=== PATIENT | male | born 1950 | race African-American/Black ===

== ENCOUNTER 2017-02-03 17:18 | Observation (INO) | payer MEDICARE ==
[~2017-02-03] VITALS: Ht 188 cm; Wt 105.9 kg
[~2017-02-03 17:18] MED LIST: ACTOS30 MG PO; CIPRO500 MG PO; CYCLOBENZAPRINE10 MG PO; DIABETA5 MG PO; GLUCOPHAGE1000 MG PO; HYDRALAZINE HCL50 MG PO; HYDROCODONE-APA1 TAB PO; NEURONTIN 300300 MG PO; NORVASC10 MG PO; PLAVIX75 MG PO; XANAX0.25 MG PO
[2017-02-03 18:19] LABS: BASOPHILS 0.3 % (0-2); EOSINOPHILS 3.4 % (0-7); HEMATOCRIT 31.6 % (42.0-54.0); HEMOGLOBIN 10.4 g/dL (13.5-17.5); IMMATURE GRANULOCYTES 0.2 % (0-5); LYMPHOCYTES 40.7 % (15-50); MCH 30.7 pg (26.0-34.0); MCHC 32.9 g/dL (31.0-37.0); MCV 93.2 fL (80.0-100.0); MEAN PLATELET VOLUME 10.4 fL (7.4-10.4); MONOCYTES 5.1 % (2-11); NEUTROPHILS 50.3 % (40-80); RBC 3.39 10x6/uL (4.20-6.10); RDW 12.7 % (11.5-14.5); WBC 6.4 10x3/uL (4.8-10.8)
[2017-02-03 18:20] LABS: PLATELET COUNT 150 10x3/uL (130-400)
[2017-02-03 18:38] LABS: ALBUMIN 3.8 g/dL (3.4-5.0); ALKALINE PHOSPHATASE 109 U/L (46-116); ALT (SGPT) 48 U/L (10-68); BILIRUBIN - TOTAL 0.34 mg/dL (0.2-1.3); CALC OSMOLALITY 281 mosm/kg (275-300); CALCIUM 8.2 mg/dL (8.5-10.1); CARBON DIOXIDE 24.4 mmol/L (21.0-32.0); CHLORIDE - SERUM 103 mmol/L (98-107); CREATININE - SERUM 1.9 mg/dL (0.6-1.3); GLUCOSE 132 mg/dL (74-106); POTASSIUM - SERUM 3.7 mmol/L (3.5-5.1); PROTEIN - SERUM 7.6 g/dL (6.4-8.2); SODIUM 138 mmol/L (136-145); UREA NITROGEN 23 mg/dL (7-18); eGFR NON AFRICAN AMERICAN 38 mL/min (90-120)
[2017-02-03 18:50] LABS: CKMB 1.5 U/L (0.0-3.6); CREATINE KINASE 472 UL (21-232); TROPONIN-I < 0.017 ng/mL (0.000-0.060)
[2017-02-03 19:00] VITALS: BP 134/61
--- NOTE | 2017-02-03 20:15 | NUR ---
RECEIVED FROM ER VIA WC. AMBULATED TO BED WITH UNSTEADY GAIT. ORIENTED TO NAME AND ONLY. KNOWS HIS FAMILY PRESENT IN ROOM. TALKING LOUDLY AND RAPIDLY. HIS IS PRESENT TO GIVE MEDICAL INFORMATION. IV IN L FA INTACT SL. STATED HE HAD BEEN DRINKING WHISKEY, FELL AND PASSED OUT, HIT HIS HEAD. NO ABRASIONS OR SWELLINGS NOTED ON HEAD OR SKIN. DENIES PAIN. REQUESTED SOME FOOD AND WATER. REQUESTED A FAMILY MEMBER TO STAY WITH HIM FOR SAFETY CONCERNS.
--- NOTE | 2017-02-03 21:50 | NUR ---
CHECKED BS AT 309. ADMIN HUMULIN R 8 UNITS.
[2017-02-04] MEDS ORDERED: LEXAPRO10 MG PO (00:02)
[2017-02-04] MEDS ORDERED: OMEPRAZOLE20 M1 PO (00:05)
[2017-02-04] MEDS ORDERED: CATAPRES0.2 MG PO (00:08)
[2017-02-04] MEDS ORDERED: GLUCOTROL 5 MG T5 MG PO (00:09)
[2017-02-04] MEDS ORDERED: NORMODYNE / TR300 MG PO (00:14)
[2017-02-04] MEDS ORDERED: TRADJENTA5 MG PO (00:15)
[2017-02-04] MEDS ORDERED: BAYER CHEWABLE81 MG PO (00:16)
[2017-02-04] MEDS ORDERED: HUMALOG 30100 UNITS/ SC (00:25)
[2017-02-04 01:01] LABS: CREATINE KINASE 444 UL (21-232); TROPONIN-I < 0.017 ng/mL (0.000-0.060)
[2017-02-04 01:02] LABS: CKMB 1.6 U/L (0.0-3.6)
[2017-02-04 01:40] VITALS: BP 134/61; Ht 188 cm; Wt 105.9 kg
--- NOTE | 2017-02-04 01:58 | NUR ---
AWAKE EATING WHITLOCK'S FOOD HIS BROUGHT TO HIM. DENIES ANY NEEDS. MORE ORIENTED TO PLACE AND SITUATION.
[2017-02-04 04:00] VITALS: BP 143/66
[2017-02-04 06:26] LABS: BASOPHILS 0.2 % (0-2); EOSINOPHILS 3.8 % (0-7); HEMATOCRIT 31.8 % (42.0-54.0); HEMOGLOBIN 10.6 g/dL (13.5-17.5); IMMATURE GRANULOCYTES 0.4 % (0-5); LYMPHOCYTES 39.3 % (15-50); MCHC 33.3 g/dL (31.0-37.0); MEAN PLATELET VOLUME 10.3 fL (7.4-10.4); MONOCYTES 8.1 % (2-11); NEUTROPHILS 48.2 % (40-80); PLATELET COUNT 145 10x3/uL (130-400); RBC 3.42 10x6/uL (4.20-6.10); RDW 12.7 % (11.5-14.5)
[2017-02-04 06:53] LABS: CALC OSMOLALITY 287 mosm/kg (275-300); CALCIUM 8.6 mg/dL (8.5-10.1); CARBON DIOXIDE 25.7 mmol/L (21.0-32.0); CHLORIDE - SERUM 107 mmol/L (98-107); CKMB 1.4 U/L (0.0-3.6); CREATINE KINASE 415 UL (21-232); CREATININE - SERUM 1.6 mg/dL (0.6-1.3); GLUCOSE 159 mg/dL (74-106); POTASSIUM - SERUM 4.2 mmol/L (3.5-5.1); SODIUM 142 mmol/L (136-145); UREA NITROGEN 18 mg/dL (7-18); eGFR NON AFRICAN AMERICAN 46 mL/min (90-120)
[2017-02-04 06:54] LABS: TROPONIN-I < 0.017 ng/mL (0.000-0.060)
--- NOTE | 2017-02-04 07:35 | NUR ---
REPORT RECIEVED. PT RESTING QUIETLY, RR EVEN AND UNLABORED. FAMILY AT BEDSIDE. EKG COMPLETED AND PLACE IN CHART. ALERT AND ORIENTED, DENIES OTHER NEEDS AT THIS TIME. INTRODUCED SELF AND NAME PLACED ON WHITE BOARD. WILL CTM.
[2017-02-04 08:00] VITALS: BP 166/75
--- NOTE | 2017-02-04 14:49 | NUR ---
PT DISCHARGED. REMOVED IV WITH CATHETER TIP INTACT, BANDAGE APPLIED. TELEMETRY REMOVED AND RETURNED TO HUMAN RESOURCES EXECUTIVE ASSISTANT. DISCHARGE INSTRUCTIONS PROVIDED TO PT AND FAMILY, BOTH VERBALIZED UNDERSTANDING. PT WILL BE LEAVING FACILITY VIA WHEELCHAIR AND WILL BE TRANSPORTED HOME WITH IN PERSONAL VEHICLE.
== END 2017-02-04 15:00 | disposition home or self-care (01) ==
LOC: OBSVTIME → D.ER 17:18 → D.M2 19:24 → D.ER 19:24 → OBSVTIME 19:24 → D.M2 19:24
PROVIDERS: Family Medicine; ADMIT Family Medicine
DX: T51.0X1A Toxic effect of ethanol, accidental (unintentional), initial encounter (principal); F10.129 Alcohol abuse with intoxication, unspecified; Y90.7 Blood alcohol level of 200-239 mg/100 ml; R41.82 Altered mental status, unspecified; I10 Essential (primary) hypertension; N28.9 Disorder of kidney and ureter, unspecified; E78.5 Hyperlipidemia, unspecified; E11.9 Type 2 diabetes mellitus without complications; F41.8 Other specified anxiety disorders; W19.XXXA Unspecified fall, initial encounter; Z87.891 Personal history of nicotine dependence

== ENCOUNTER 2018-03-15 23:47 | Emergency (ER) | payer MEDICARE ==
[~2018-03-15] VITALS: Ht 188 cm; Wt 104.3 kg
[~2018-03-15 23:47] MED LIST changes: +BAYER CHEWABLE81 MG PO; +CATAPRES0.2 MG PO; +GLUCOTROL 5 MG T5 MG PO; +HUMALOG 30100 UNITS/ SC; +LEXAPRO10 MG PO; +NORMODYNE / TR300 MG PO; +OMEPRAZOLE20 M1 PO; +TRADJENTA5 MG PO
[2018-03-15 23:59] VITALS: Ht 188 cm; Wt 104.3 kg
[2018-03-16 00:47] VITALS: BP 122/73
== END 2018-03-16 00:48 | disposition home or self-care (01) ==
LOC: D.ER 23:47
DX: Z91.19 Patient's noncompliance with other medical treatment and regimen (principal)

== ENCOUNTER 2018-11-30 12:20 | Emergency (ER) | payer OTHER ==
[~2018-11-30] VITALS: Ht 188 cm; Wt 99.1 kg
[2018-11-30 12:41] VITALS: BP 126/60; Ht 188 cm; Wt 99.1 kg
[2018-11-30 13:18] LABS: APPEARANCE CLEAR (CLEAR); BILIRUBIN NEGATIVE (NEGATIVE); COLOR YELLOW (YELLOW); GLUCOSE 500 mg/dL (NEGATIVE); KETONE NEGATIVE (NEGATIVE); NITRITE NEGATIVE (NEGATIVE); PROTEIN NEGATIVE (NEGATIVE); UROBILINOGEN NORMAL (NORMAL)
[2018-11-30] MEDS ORDERED: TORADOL10 MG PO (15:57)
== END 2018-11-30 16:28 | disposition home or self-care (01) ==
LOC: D.ER 12:20
PROVIDERS: Family Medicine
DX: M54.2 Cervicalgia (principal); M20.30 Hallux varus (acquired), unspecified foot; Z98.890 Other specified postprocedural states; V03.90XA Pedestrian on foot injured in collision with car, pick-up truck or van, unspecified whether traffic or nontraffic accident, initial encounter; Y93.89 Activity, other specified; Y92.410 Unspecified street and highway as the place of occurrence of the external cause

== ENCOUNTER 2018-12-19 19:08 | Inpatient (IN) | payer OTHER ==
[2018-12-19] VITALS (9 sets, daily range): BP systolic 149–207; BP diastolic 83–105; BMI 24.5
[~2018-12-19] VITALS: Ht 188 cm; Wt 89.8 kg
[~2018-12-19 19:08] MED LIST changes: +TORADOL10 MG PO
--- NOTE | 2018-12-19 19:15 | NUR ---
TRAUMA BAND [id number]
--- NOTE | 2018-12-19 19:30 | NUR ---
OFFICER ELIANE CONTRERAS NUMBER [id number] AT PT'S BEDSIDE.
--- NOTE | 2018-12-19 20:04 | NUR ---
PT'S NIECE AT PT'S BEDSIDE, UPON REASSESSMENT PT'S NIECE REPORTS THAT SHE WITNESSED PT FALL AND HIT HIS HEAD GALLEY BOY. EDP NOTIFED.
--- NOTE | 2018-12-19 21:44 | NUR ---
PT GIVEN BLANKETS.
[2018-12-19 21:52] LABS: BASOPHILS 0.3 % (0-2); EOSINOPHILS 6.8 % (0-7); HEMATOCRIT 33.2 % (42.0-54.0); HEMOGLOBIN 11.6 g/dL (13.5-17.5); IMMATURE GRANULOCYTES 0.3 % (0-5); LYMPHOCYTES 40.7 % (15-50); MCH 31.4 pg (26.0-34.0); MCHC 34.9 g/dL (31.0-37.0); MCV 89.7 fL (80.0-100.0); MEAN PLATELET VOLUME 9.9 fL (7.4-10.4); MONOCYTES 6.5 % (2-11); NEUTROPHILS 45.4 % (40-80); PLATELET COUNT 138 10x3/uL (130-400); RDW 12.1 % (11.5-14.5); WBC 6.1 10x3/uL (4.8-10.8)
[2018-12-19 22:00] LABS: APTT 29.4 SECONDS (22.8-39.4); INR 1.08 (0.85-1.17); PROTIME 13.5 SECONDS (11.6-15.0)
[2018-12-19 22:04] LABS: ALBUMIN 3.8 g/dL (3.4-5.0); ANION GAP 12.3 mmol/L (8-16); BILIRUBIN - TOTAL 0.39 mg/dL (0.2-1.3); CALCIUM 8.7 mg/dL (8.5-10.1); CARBON DIOXIDE 28.3 mmol/L (21.0-32.0); CREATININE - SERUM 1.5 mg/dL (0.6-1.3); POTASSIUM - SERUM 3.6 mmol/L (3.5-5.1); PROTEIN - SERUM 7.6 g/dL (6.4-8.2)
--- NOTE | 2018-12-19 22:19 | NUR ---
PT'S IV KEPPRA INFUSION FINISHED.
--- NOTE | 2018-12-19 23:15 | NUR ---
Received patient from ER to 2310 and connected to monitor, assessment completed per flowsheet. Patient AO x4, answers appropriately/follows commands. S1/S2 noted NSR on telemetry with HR 68, rythmic and regular. Breathing is even/unlabored on room air with O2 sat 96%, lung sounds clear throughout. Abdomen is round/soft with bowel sounds active x4, non-tender. Patient utilizes urinal jug without assist, 375ml clear yellow urine. All pulses palpable with cap refill < 3 sec, skin warm/dry. Patient food tray assembler equal bilateral, pedal strength equal bilateral. Denies pain or other needs at this time, see flowsheet for details. All VSS and will continue to monitor.
[2018-12-20] VITALS (22 sets, daily range): BP systolic 131–180; BP diastolic 70–99; Ht 188 cm; Wt 89.8 kg
--- NOTE | 2018-12-20 01:00 | NUR ---
Patient resting in bed with eyes closed, no s/s of distress. Patient awakens and answers appropriately/follows instrcutions, claims he "just wants to sleep". BP/HR stable, no further needs and will continue to monitor.
--- NOTE | 2018-12-20 03:00 | NUR ---
Reassessment completed per flowsheet, no changes noted from previous assessment. Patient awakens to voice, follows instructions/answers appropriately. S1/S2 noted NSR on telemetry, rythmic and regular. Breathing is even/unlabored on room air with O2 sat 94%, lung sounds clear throughout. All pulses palpable with cap refill < 3 sec, skin warm/dry. Denies pain or other needs at this time, see flowsheet for details. All VSS and will continue to monitor.
--- NOTE | 2018-12-20 05:00 | NUR ---
Patient sleeping in bed with eyes closed, no s/s of distress at this time. Awakens to voice, follows instructions/answers appropriately. Denies needs at this time, all VSS and will continue to monitor.
--- NOTE | 2018-12-20 08:18 | NUR ---
0700 AWAKE ALERT ANSWERS QUESTIONS REQUESTING DATA ENTRY PROCESSOR DEPT PHONE NUMBER. ROOM NUMBER AND DATA ENTRY PROCESSOR DEPT NUMBER PROVIDED TO PATIENT ASSESMENT COMPLETE.
--- NOTE | 2018-12-20 19:00 | NUR ---
RECIEVED RREPORT FROM KARINA CARNES. PT ALERT AND ORIENTED X4 AT THIS TIME. PT SON AT BEDSIDE. PT VITALS STABLE. NO S/S OF DISTRESS PRESENT. PT DENIES ANY PAIN OR NEEDS AT THIS TIME. BED LOW CALL LIGHT WITHIN REACH. SIDE RAILS UP X2. WILL CONTINUE TO MONITOR.
--- NOTE | 2018-12-20 19:03 | MORECARE ---
CASE MANAGEMENT DISCHARGE SUMMARY PATIENT: WILFRID MARISCAL UNIT: [id number] ADM DATE: 12/19/18 AGE: 68 : 50 SEX: M ROOM/BED: D.2310 AUTHOR: TYRON TORRES PHYSICIAN: REFERRING PHYSICIAN: NAE WEINSTEIN MD DATE OF SERVICE: 12/20/18 Discharge Plan Patient Name: WILFRID MARISCAL [facility] [facility] 1950 Planned Disposition: Home Anticipated Discharge Date: Discharge Date: Expected LOS: Initial Reviewer: [email or web address] Initial Review Date: 12/19/2018 Generated: 12/20/18 8:03 pm Patient Name: WILFRID MARISCAL Page 35151 at 1903 All edits/amendments must be made on the electronic document DICTATION DATE: 12/20/181901 SHIP DESIGN TEACHER: AVINASH 12/20/181901 RPT#: [id number] DC DATE: STATUS: ADM IN [facility] [address] [place] [address] END OF REPORT
--- NOTE | 2018-12-20 19:10 | MORECARE ---
CASE MANAGEMENT DISCHARGE SUMMARY PATIENT: WILFRID MARISCAL UNIT: [id number] ADM DATE: 12/19/18 AGE: 68 : 50 SEX: M ROOM/BED: D.2310 AUTHOR: MELISSA,DOC PHYSICIAN: REFERRING PHYSICIAN: NAE WEINSTEIN MD DATE OF SERVICE: 12/20/18 Discharge Plan Patient Name: WILFRID MARISCAL Facility: [facility]:[place] : 1950 Planned Disposition: Home Anticipated Discharge Date: Discharge Date: Expected LOS: Initial Reviewer: [email or web address] Initial Review Date: 12/19/2018 Generated: 12/20/18 8:10 pm Comments DCP- Discharge Planning Updated by [email or web address]: Magaly Walsh on 12/20/18 6:[address] Patient Name: WILFRID MARISCAL Admission Status: ER Accout number: [id number] Admission Date: 12-19-2018 : 1950 Admission Diagnosis: Attending: NAE WEINSTEIN Current LOS: 1 Anticipated DC Date: Planned Disposition: Home Primary Insurance: [employer] Discharge Planning Comments: CM met with patient at bedside. Patient states he lives at home alone. He plans on returning to his home upon discharge. He states he feels safe at his home. He states he will have family drive him home upon discharge. He denies any discharge needs at this time. CM will continue to follow and assist as needed with discharge planning / needs. Educational Program Director: Magaly Walsh DCPIA - Discharge Planning Initial Assessment Updated by [email or web address]: Magaly Walsh on 12/20/18 7:06 pm * Is the patient Alert and Oriented? Yes * How many steps to enter\exit or inside your home? * PCP unknown * Pharmacy [facility] * Preadmission Environment Home Alone * ADLs Independent * Equipment None * List name and contact numbers for known caregivers / representatives who currently or will assist patient after discharge: DUNCAN GARCIA SON - [phone] KRISTEN MARISCAL JR - SON - [phone] NICHOLAS JOHNS [facility] - [phone] * Verbal permission to speak to the caregivers and representatives has been obtained from the patient. Yes * Community resources currently utilized None * Additional services required to return to the preadmission environment? No * Can the patient safely return to the preadmission environment? Yes * Has this patient been hospitalized within the prior 30 days at any hospital? No Last DP export: 12/20/18 6:03 p Patient Name: WILFRID MARISCAL Page [id number] at 1910 All edits/amendments must be made on the electronic document DICTATION DATE: 12/20/181909 DAY TREATMENT CLINICIAN/ART THERAPIST: AVINASH 12/20/181909 RPT#: [id number] DC DATE: STATUS: ADM IN [facility] [address] [place] [address] END OF REPORT
--- NOTE | 2018-12-20 21:00 | NUR ---
PT RESTING IN BED WITH EYES CLOSED RR EVEN AND UNLABORED. NO S/S OF DISTRESS. VITALS STABLE AT THIS TIME. WILL CONTINUE TO MONITOR. BED LOW CALL LIGHT WITHIN REACH SIDE RAILS X2.
--- NOTE | 2018-12-20 22:37 | NUR ---
0900 AWAKE ALERT NO DISTRESS NOTED C/O H/A 01/09 APAP 650MG GIVEN PO
--- NOTE | 2018-12-20 22:38 | NUR ---
1100 UP TO BSC SOFT BROWN STOOL NOTED
--- NOTE | 2018-12-20 22:39 | NUR ---
1500 FAMILY AT BEDSIDE EMOTIONAL SUPPORT GIVEM
--- NOTE | 2018-12-20 22:39 | NUR ---
13OO VOIDS IN URINAL INDEPENDENTLY
--- NOTE | 2018-12-20 22:39 | NUR ---
1000 DIESEL PLANT OPERATOR AT BEDSIDE TAKING REPORT FROM PATIENT
--- NOTE | 2018-12-20 22:41 | NUR ---
1700 APPETITE SCHEDULED BLOOD SUGARS PERFORMED
--- NOTE | 2018-12-20 23:00 | NUR ---
PT RESTING IN BED WITH EYES CLOSED RR EVEN AND UNLABORED. PT AWAKES TO VOICE. VITALS STABLE. BED LOW CALL LIGHT WITHIN REACH. SIDE RAILS UP X2 WILL CONTINUE TO MONITOR.
[2018-12-21] VITALS (18 sets, daily range): BP systolic 159–203; BP diastolic 72–109
--- NOTE | 2018-12-21 | NUR ---
PT RESTING IN BED WITH EYES CLOSED RR EVEN AND UNLABORED. NO S/S OF DISTRESS AT THIS TIME. BED LOW CALL LIGHT WITHIN REACH. WILL CONTINUE TO MONITOR. VITALS STABLE.
--- NOTE | 2018-12-21 02:00 | NUR ---
PT RESTING IN BED WITH EYES CLOSED RR EVEN AND UNLABORED. VITALS STABLE AT THIS TIME. BED LOW CALL LIGHT WITHIN REACH. WILL CONTINUE TO MONITOR.
--- NOTE | 2018-12-21 04:00 | NUR ---
PT RESTING IN BED WITH EYES CLOSED RR EVEN AND UNLABORED. VITALS STABLE. BED LOW CALL LIGHT WITHIN REACH. WILL CONTINUE TO MONITOR.
[2018-12-21 05:10] LABS: BASOPHILS 0.3 % (0-2); EOSINOPHILS 6.9 % (0-7); HEMATOCRIT 30.7 % (42.0-54.0); HEMOGLOBIN 10.8 g/dL (13.5-17.5); IMMATURE GRANULOCYTES 0.3 % (0-5); LYMPHOCYTES 34.1 % (15-50); MCH 31.8 pg (26.0-34.0); MCHC 35.2 g/dL (31.0-37.0); MCV 90.3 fL (80.0-100.0); MEAN PLATELET VOLUME 10.1 fL (7.4-10.4); MONOCYTES 8.4 % (2-11); PLATELET COUNT 119 10x3/uL (130-400); RDW 12.1 % (11.5-14.5); WBC 6.1 10x3/uL (4.8-10.8)
[2018-12-21 05:30] LABS: ANION GAP 12.4 mmol/L (8-16); CARBON DIOXIDE 25.2 mmol/L (21.0-32.0); CREATININE - SERUM 1.3 mg/dL (0.6-1.3); MAGNESIUM - SERUM 1.7 mg/dL (1.8-2.4); PHOSPHOROUS 2.9 mg/dL (2.5-4.9); POTASSIUM - SERUM 3.6 mmol/L (3.5-5.1)
--- NOTE | 2018-12-21 06:01 | NUR ---
I CONCUR WITH THE BLOW MOLD MACHINE OPERATOR ASSESSMENT.
--- NOTE | 2018-12-21 07:00 | NUR ---
ALERT AND ORIENTEDX3 PUPIL 5 TO LT EYE DUE TO HX BLIND AND EQUAL AND REACTIVE 2 TO RT. EYE. TEMEMETRY INTACT. LUNGS CTA. ABDOMEN SOFT WITH BS NOTED WITHOUT ANY PERIPHERAL EDEMA. HX. SEIZURES WITH NONE NOTED. USES RUINAL PRN WITH DRESSING INTACT TO LT. FOREARM.ENCOURAGED TO USE CALL LIGHT FOR ASSIST.
--- NOTE | 2018-12-21 09:00 | NUR ---
DRESSING CHANGD TO LEFT ELBOW WITH SUTURES INTACT WITH NO S/S OF INFECTION NOTED. DENIES ANY PAIN OR DISCOMFORT AND ALERT AND ORIENTED X4. IVF INFUSING AT PRESCRIBED RATE. ENCOURAGED TO USE CALL IGHT FOR ASSIST.
--- NOTE | 2018-12-21 11:00 | NUR ---
NO CHANGE IN CONDITION. TELEMETRY SR 77. DENIES ANY CHEST PAIN. NO CHANGE IN VISION AND ALERT AND ORIENTED WITH GOOD ROM OF EXT X4. ENCOURAGED TO USE CALL LIGHT FOR ASSSIT.
--- NOTE | 2018-12-21 13:00 | NUR ---
PT UP TO BSC WITH SBA AND HAD LARGE BM. STEADY W/O VERTIGO. PT BATHED SELF WITH MINIMAL ASSSIT WITH LINEN CHANGED. DENIES ANY PAIN OR DISCOMFORT. TELEMETRY INTACT. NO CHANGE IN CONDITION
--- NOTE | 2018-12-21 15:00 | NUR ---
ALERT AND ORIENTED WITH GOOD ROM OF EXT X4. NO CHANGE IN CONDITION AND ENCOURAGED TO USE CALL LIGHT FOR ASSSIT.
--- NOTE | 2018-12-21 17:00 | NUR ---
NO CHANGE IN CONDITION. BS 120 AND NO INSULIN REQUIRED. ENCOURAGED TO USE CALL LIGHT FOR ASSIST.
--- NOTE | 2018-12-21 18:42 | NUR ---
ALERT AND ORIENTED WITH NO CHANGE IN CONDITION IV INTACT. ENCOURAGED TO USE CALL LIGHT FOR ASSSIT.
--- NOTE | 2018-12-21 19:00 | NUR ---
PT SITTING UP IN BED WITHOUT DISTRESS, ALERT AND ORIENTED X4. FAMILY AT BEDSIDE. DENIES NEEDS OR COMPLAINTS. IV RIGHT FA INFUSING NS @ 100, NO REDNESS OR SWELLING AT INSERTION SITE. USING URINAL INDEPENDENTLY. DRESSING NOT ELBOW CDI. SRX2, BED LOWEST POSITION, CL IN REACH. WILL CTM
[2018-12-21 20:08] LABS: APPEARANCE CLEAR (CLEAR); BILIRUBIN NEGATIVE (NEGATIVE); COLOR STRAW (YELLOW); GLUCOSE 50 mg/dL (NEGATIVE); KETONE NEGATIVE (NEGATIVE); NITRITE NEGATIVE (NEGATIVE); PROTEIN NEGATIVE (NEGATIVE); SPECIFIC GRAVITY 1.005 (1.005-1.020); UROBILINOGEN NORMAL (NORMAL)
[2018-12-21 20:10] LABS: UDS - AMPHET NEGATIVE QUAL (NEGATIVE); UDS - BARB NEGATIVE QUAL (NEGATIVE); UDS - BENZO NEGATIVE QUAL (NEGATIVE); UDS - COCAINE NEGATIVE QUAL (NEGATIVE); UDS - OPIATE NEGATIVE QUAL (NEGATIVE); UDS - PCP NEGATIVE QUAL (NEGATIVE); UDS - THC NEGATIVE QUAL (NEGATIVE)
--- NOTE | 2018-12-21 21:00 | NUR ---
PT RESTING WITH HOB 30 DEGREES. WITHOUT NEEDS. SRX3, CL IN REACH, WILL CTM
--- NOTE | 2018-12-21 23:00 | NUR ---
PT LYING IN BED RESTING, STATES HE HAS HEADACHE 6/10 ON PAIN SCALE. OFFERED PT TYLENOL, REFUSED AND REQUESTED DILAUDID. GAVE DILAUDID ORDERED. DENIES OTHER NEEDS. AT THIS TIME. CL IN REACH, WILL CTM
--- NOTE | 2018-12-22 01:00 | NUR ---
PT SITTING UP IN BED AWAKE, ORIENTED X4. DENIES PAIN. REQUESTED AND PROVIDED ICE WATER. DENIES OTHER NEEDS. CL IN REACH, WILL CTM
[2018-12-22 03:00] VITALS: BP 154/74
--- NOTE | 2018-12-22 03:00 | NUR ---
PT LYING IN BED RESTING WITH EYES CLOSED, BREATHING EVEN, UNLABORED. WITHOUT DISTRESS. CL IN REACH, SRX3. WILL CTM
[2018-12-22 03:27] LABS: BASOPHILS 0.5 % (0-2); EOSINOPHILS 8.6 % (0-7); HEMATOCRIT 30.7 % (42.0-54.0); HEMOGLOBIN 10.5 g/dL (13.5-17.5); IMMATURE GRANULOCYTES 0.2 % (0-5); LYMPHOCYTES 30.6 % (15-50); MCHC 34.2 g/dL (31.0-37.0); MCV 90.6 fL (80.0-100.0); MEAN PLATELET VOLUME 10.1 fL (7.4-10.4); MONOCYTES 7.2 % (2-11); NEUTROPHILS 52.9 % (40-80); PLATELET COUNT 124 10x3/uL (130-400); RBC 3.39 10x6/uL (4.20-6.10); RDW 12.1 % (11.5-14.5); WBC 6.2 10x3/uL (4.8-10.8)
[2018-12-22 03:35] LABS: ANION GAP 8.4 mmol/L (8-16); CARBON DIOXIDE 28.1 mmol/L (21.0-32.0); CREATININE - SERUM 1.2 mg/dL (0.6-1.3); PHOSPHOROUS 2.7 mg/dL (2.5-4.9); POTASSIUM - SERUM 3.5 mmol/L (3.5-5.1)
--- NOTE | 2018-12-22 05:00 | NUR ---
PT LYING IN BED RESTING WITH EYES CLOSED, WITHOUT DISTRESS. BREATHING EVEN, UNLABORED. DENIES NEEDS. SRX3, CL IN REACH. WILL CTM
--- NOTE | 2018-12-22 05:50 | NUR ---
CASHIER CREDIT IN ROOM, PT CONVERSING IN NO APPARENT DISTRESS, NO VISITORS PRESENT AT THIS TIME.
--- NOTE | 2018-12-22 06:11 | NUR ---
ASSISTED PT WITH BATH SET UP. PT WASHED UP INDEPENDENTLY, CHANGED PT LINENS. WITHOUT OTHER NEEDS AT THIS TIME. CL IN REACH, WILL CTM
[2018-12-22 07:00] VITALS: BP 190/79
--- NOTE | 2018-12-22 08:22 | NUR ---
UP IN BED EATING BREAKFAST AT THIS TIME. NO ACUTE DISTRESS NOTED. CALL LIGHT IN REACH. WILL CONTINUE PLAN OF CARE.
--- NOTE | 2018-12-22 10:23 | NUR ---
UP IN BED TALKING ON PHONE AT THIS TIME. NO ACUTE DISTRESS NOTED. WILL CONTINUE PLAN OF CARE.
[2018-12-22 11:00] VITALS: BP 152/69
--- NOTE | 2018-12-22 12:12 | NUR ---
PT DECLINED WANTING TO HAVE CONFIDENTAL STATUS STATING HE IS OKAY FOR FAMILY AND KIDS TO KNOW WHERE HE IS WHILE HE IS IN THE HOSPITAL. CALL IN CODE HAS BEEN ESTABLISHED ALSO. WILL CONTINUE PLAN OF CARE.
--- NOTE | 2018-12-22 12:12 | MORECARE ---
CASE MANAGEMENT DISCHARGE SUMMARY PATIENT: WILFRID MARISCAL UNIT: [id number] ADM DATE: 12/19/18 AGE: 68 : 50 SEX: M ROOM/BED: D.2310 AUTHOR: MELISSA,DOC PHYSICIAN: REFERRING PHYSICIAN: NAE WEINSTEIN MD DATE OF SERVICE: 12/22/18 Discharge Plan Patient Name: WILFRID MARISCAL Facility: [facility]:[place] : 1950 Planned Disposition: Home Anticipated Discharge Date: Discharge Date: Expected LOS: Initial Reviewer: [email or web address] Initial Review Date: 12/19/2018 Generated: 12/22/18 1:11 pm Comments DCP- Discharge Planning Updated by [email or web address]: Lana Blaes on 12/22/18 11:[address] PATIENT'S PRIMARY NURSE STATES THE PATIENT IS VOICING CONCERNS ABOUT HIS SAFETY AT DISCHARGE. HE ALSO IS CONCERNED ABOUT THE ATTACKER, HIS 'S BOYFRIEND, POSSIBLY FLEEING THE AREA. THE PATIENT HAS BEEN VISITED BY THE POLICE. HE HAS A CARD WITH CONTACT INFORMATION FOR THE OFFICER WHO VISITED HIM ON SITE. CM ADVISED SUKUMAR, HIS PRIMARY, TO ASSIST PATIENT IN CONTACTING THE OFFICER. THESE ARE CONCERNS THAT NEED TO BE FOLLOWED UP LAW ENFORCEMENT. CM ADVISED THE PATIENT MAY WANT TO BE LISTED CONFIDENTIAL. DCP- Discharge Planning Updated by [email or web address]: Magaly Walsh on 12/20/18 6:[address] Patient Name: WILFRID MARISCAL Admission Status: ER Accout number: [id number] Admission Date: 12-19-2018 : 1950 Admission Diagnosis: Attending: NAE WEINSTEIN Current LOS: 1 Anticipated DC Date: Planned Disposition: Home Primary Insurance: NOVASYSMCR Discharge Planning Comments: CM met with patient at bedside. Patient states he lives at home alone. He plans on returning to his home upon discharge. He states he feels safe at his home. He states he will have family drive him home upon discharge. He denies any discharge needs at this time. CM will continue to follow and assist as needed with discharge planning / needs. Public Works Inspector: Magaly Walsh DCPIA - Discharge Planning Initial Assessment Updated by [email or web address]: Magaly Walsh on 12/20/18 7:06 pm * Is the patient Alert and Oriented? Yes * How many steps to enter\exit or inside your home? * PCP unknown * Pharmacy [facility] * Preadmission Environment Home Alone * ADLs Independent * Equipment None * List name and contact numbers for known caregivers / representatives who currently or will assist patient after discharge: DUNCAN RIVERS [facility] - [phone] KRISTEN MARISCAL - SON - [phone] NICHOLAS JOHNS [facility] - [phone] * Verbal permission to speak to the caregivers and representatives has been obtained from the patient. Yes * Community resources currently utilized None * Additional services required to return to the preadmission environment? No * Can the patient safely return to the preadmission environment? Yes * Has this patient been hospitalized within the prior 30 days at any hospital? No Last DP export: 12/20/18 6:10 p Patient Name: WILFRID MARISCAL Page 37363 at 1212 All edits/amendments must be made on the electronic document DICTATION DATE: 12/22/18 1211 ROLL FORMING MACHINE SET UP MECHANIC: AVINASH 12/22/18 1211 RPT#: [id number] DC DATE: STATUS: ADM IN [facility] [address] [place] [address] END OF REPORT
--- NOTE | 2018-12-22 12:23 | NUR ---
SP0KE WITH DR TEJADA REGARDING SBP TRENDING UP TO 190S. ORDERS PLACED.
[2018-12-22] MEDS ORDERED: HYDRALAZINE HCL50 MG PO (13:25)
[2018-12-22] MEDS ORDERED: NORVASC10 MG PO (13:25)
[2018-12-22] MEDS ORDERED: LISINOPRIL40 MG PO (13:26)
[2018-12-22 15:00] VITALS: BP 188/87
--- NOTE | 2018-12-22 15:15 | NUR ---
NOTED PT TO DISCHARGE HOME AT THIS TIME. PT HAS SIGNED DISCHARGE PAPERWORK. HE STATES HE HAS A FOLLOWUP APPT WITH HIS PCP ON MONDAY. TEACHING PAPERWORK ALSO GIVEN REGARDING PTS HOSPITAL STAY DIAGNOSIS. NO ACUTE DISTRESS NOTED. WILL CONTINUE PLAN OF CARE.
--- NOTE | 2018-12-22 15:23 | NUR ---
RT FOREARM PERIPHER IV DCD. CATHETER TIP INTACT.
--- NOTE | 2018-12-22 15:41 | NUR ---
PT DISCHARGED HOME AT THIS TIME WITH ALL PERSONAL ITEMS AND DISCHARGE PAPERWORK. LEFT VIA PERSONAL VEHICLE WITH FAMILY MEMBER. NO ACUTE DISTRESS NOTED. NO FURTHER ACTIONS.
--- NOTE | 2018-12-24 09:44 | MORECARE ---
CASE MANAGEMENT DISCHARGE SUMMARY PATIENT: WILFRID MARISCAL UNIT: [id number] ADM DATE: 12/19/18 AGE: 68 : 50 SEX: M ROOM/BED: D.2310 AUTHOR: MELISSA,DOC PHYSICIAN: REFERRING PHYSICIAN: NAE WEINSTEIN MD DATE OF SERVICE: 12/24/18 Discharge Plan Patient Name: WILFRID MARISCAL Facility: [facility]:[place] : 1950 Planned Disposition: Home Anticipated Discharge Date: Discharge Date: 12/22/2018 Expected LOS: Initial Reviewer: [email or web address] Initial Review Date: 12/19/2018 Generated: 12/24/18 10:44 am Comments DCP- Discharge Planning Updated by [id number]: Lana Bales on 12/22/18 11:[address] PATIENT'S PRIMARY NURSE STATES THE PATIENT IS VOICING CONCERNS ABOUT HIS SAFETY AT DISCHARGE. HE ALSO IS CONCERNED ABOUT THE ATTACKER, HIS 'S BOYFRIEND, POSSIBLY FLEEING THE AREA. THE PATIENT HAS BEEN VISITED BY THE POLICE. HE HAS A CARD WITH CONTACT INFORMATION FOR THE OFFICER WHO VISITED HIM ON SITE. CM ADVISED SUKUMAR, HIS PRIMARY, TO ASSIST PATIENT IN CONTACTING THE OFFICER. THESE ARE CONCERNS THAT NEED TO BE FOLLOWED UP LAW ENFORCEMENT. CM ADVISED THE PATIENT MAY WANT TO BE LISTED CONFIDENTIAL. DCP- Discharge Planning Updated by [email or web address]: Magaly Walsh on 12/20/18 6:[address] Patient Name: WILFRID MARISCAL Admission Status: ER Accout number: [id number] Admission Date: 12-19-2018 : 1950 Admission Diagnosis: Attending: NAE WEINSTEIN Current LOS: 1 Anticipated DC Date: Planned Disposition: Home Primary Insurance: NOVASYSMCR Discharge Planning Comments: CM met with patient at bedside. Patient states he lives at home alone. He plans on returning to his home upon discharge. He states he feels safe at his home. He states he will have family drive him home upon discharge. He denies any discharge needs at this time. CM will continue to follow and assist as needed with discharge planning / needs. Audit Intern: Magaly Walsh DCPIA - Discharge Planning Initial Assessment Updated by [email or web address]: Magaly Walsh on 12/20/18 7:06 pm * Is the patient Alert and Oriented? Yes * How many steps to enter\exit or inside your home? * PCP unknown * [facility] * Preadmission Environment Home Alone * ADLs Independent * Equipment None * List name and contact numbers for known caregivers / representatives who currently or will assist patient after discharge: DUNCAN RIVERS JOSE SON - [phone] KRISTEN MARISCAL - SON - [phone] NICHOLAS JOHNS [facility] - [phone] * Verbal permission to speak to the caregivers and representatives has been obtained from the patient. Yes * Community resources currently utilized None * Additional services required to return to the preadmission environment? No * Can the patient safely return to the preadmission environment? Yes * Has this patient been hospitalized within the prior 30 days at any hospital? No Last DP export: 12/22/18 11:12 a Patient Name: WILFRID MARISCAL Page 45267 at 0944 All edits/amendments must be made on the electronic document DICTATION DATE: 12/24/18942 ASSISTANT DIRECTOR OF ADMISSIONS: AVINASH 12/24/18942 RPT#: [id number] DC DATE:12/22/18 STATUS: DIS IN [facility] [address] [place] [address] END OF REPORT
== END 2018-12-22 15:44 | disposition home or self-care (01) | DRG 981 ==
LOC: D.ER 19:08 → D.ICU 21:40
PROVIDERS: Emergency Medicine; ADMIT Internal Medicine Nephrology; ATTEND Internal Medicine Nephrology
PROC: 0XQ Anatomical Regions, Upper Extremities, Repair (ICD-10-PCS; principal; 2018-12-19)
DX: S06.6X1A Traumatic subarachnoid hemorrhage with loss of consciousness of 30 minutes or less, initial encounter (principal); G93.41 Metabolic encephalopathy; I12.9 Hypertensive chronic kidney disease with stage 1 through stage 4 chronic kidney disease, or unspecified chronic kidney disease; N18.3 Chronic kidney disease, stage 3 (moderate); E78.5 Hyperlipidemia, unspecified; F41.8 Other specified anxiety disorders; F12.10 Cannabis abuse, uncomplicated; F10.20 Alcohol dependence, uncomplicated; H54.40 Blindness, one eye, unspecified eye; D64.9 Anemia, unspecified; I25.10 Atherosclerotic heart disease of native coronary artery without angina pectoris; S51.012A Laceration without foreign body of left elbow, initial encounter; S00.03XA Contusion of scalp, initial encounter; E11.22 Type 2 diabetes mellitus with diabetic chronic kidney disease